=== PATIENT | male | born 1965 | race Caucasian/White ===

== ENCOUNTER 2018-08-02 15:15 | Emergency (ER) | payer SELFPAY ==
[~2018-08-02] VITALS: Ht 172.7 cm; Wt 77.1 kg
--- NOTE | 2018-08-02 15:35 | PHYS DOC ---
Past Medical History Past Medical History: No Pertinent History Past Surgical History: No Surgical History, Cholecystectomy Additional Information: 0.5 PPD Alcohol Use: None Drug Use: None Adult General Chief Complaint Chief Complaint: ABDOMINAL PAIN HPI HPI Patient is a 53 year old male brought in by ambulance with abdominal pain. Described as "grabbing" just above his bellybutton associated with nausea and vomiting he did have a bowel movement earlier in the day he has had his appendix and his gallbladder removed he is from near [facility] He does not take any daily medications. He is up here for work. Review of Systems Review of Systems Constitutional: Denies fever or chills [] Eyes: Denies change in visual acuity, redness, or eye pain [] HENT: Denies nasal congestion or sore throat [] Respiratory: Denies cough or shortness of breath [] Cardiovascular: No additional information not addressed in HPI [] Neurologic: Denies headache, focal weakness or sensory changes [] Endocrine: Denies polyuria or polydipsia [] All other systems were reviewed and found to be within normal limits, except as documented in this note. Current Medications Current Medications Current Medications Medications (Trade) Dose Ordered Sig/Yovani Start Time Stop Time Status Last Admin Dose Admin Diphenhydramine HCl (Benadryl) 25 mg 1X ONCE 08/02/18 18:30 08/02/18 18:31 DC 08/02/18 18:34 25 MG Fentanyl Citrate (Fentanyl 2ml Vial) 50 mcg 1X ONCE 08/02/18 15:45 08/02/18 15:46 DC 08/02/18 16:44 50 MCG Info (CONTRAST GIVEN -- Rx MONITORING) 1 each PRN DAILY PRN 08/02/18 15:45 08/02/18 19:14 DC Iohexol (Omnipaque 300 Mg/ml) 75 ml 1X ONCE 08/02/18 15:45 08/02/18 15:46 DC 08/02/18 17:50 75 ML Methylprednisolone Sodium Succinate (SOLU-Medrol 125MG VIAL) 125 mg 1X ONCE 08/02/18 18:30 08/02/18 18:31 DC 08/02/18 18:33 125 MG Multi-Ingredient Mouthwash/Gargle (Gi Cocktail) 20 ml 1X ONCE 08/02/18 15:45 08/02/18 15:46 DC 08/02/18 16:44 20 ML Sodium Chloride 1,000 ml @ 1,000 mls/hr 1X ONCE 08/02/18 15:45 08/02/18 16:44 DC 08/02/18 16:43 1,000 MLS/HR Allergies Allergies Allergies Coded Allergies Type Severity Reaction Last Updated Verified No Known Drug Allergies 08/02/18 No Physical Exam Physical Exam Constitutional: Well developed, well nourished, no acute distress, non-toxic appearance. [] HENT: Normocephalic, atraumatic, bilateral external ears normal, oropharynx moist, no oral exudates, nose normal. [] Eyes: PERRLA, EOMI, conjunctiva normal, no discharge. [] Neck: Normal range of motion, no tenderness, supple, no stridor. [] Cardiovascular:Heart rate regular rhythm, no murmur [] Lungs & Thorax: Bilateral breath sounds clear to auscultation [] Abdomen: Bowel sounds normal, soft, epigastric and just above the umbilicus tenderness, no masses, no pulsatile masses. [] No peritoneal signs Skin: Warm, dry, no erythema, no rash. [] Back: No tenderness, no CVA tenderness. [] Extremities: No tenderness, no cyanosis, no clubbing, ROM intact, no edema. [] Neurologic: Alert and oriented X 3, normal motor function, normal sensory function, no focal deficits noted. [] Psychologic: Affect normal, judgement normal, mood normal. [] Current Patient Data Vital Signs Vital Signs Date Time Temp Pulse Resp B/P (MAP) Pulse Ox O2 Delivery O2 Flow Rate FiO2 08/02/18 19:00 74 162/96 (118) 95 Room Air 08/02/18 18:13 19 08/02/18 15:15 98.2 98.2 Lab Values Laboratory Tests Test 08/02/18 16:40 08/02/18 17:43 White Blood Count 14.4 x10^3/uL (4.0-11.0) H Red Blood Count 4.59 x10^6/uL (4.30-5.70) Hemoglobin 16.1 g/dL (13.0-17.5) Hematocrit 45.7 % (39.0-53.0) Mean Corpuscular Volume 100 fL (79-100) Mean Corpuscular Hemoglobin 35 pg (25-35) Mean Corpuscular Hemoglobin Concent 35 g/dL (31-37) Red Cell Distribution Width 14.3 % (11.5-14.5) Platelet Count 303 x10^3/uL (140-400) Neutrophils (%) (Auto) 79 % (31-73) H Lymphocytes (%) (Auto) 13 % (24-48) L Monocytes (%) (Auto) 7 % (0-9) Eosinophils (%) (Auto) 1 % (0-3) Basophils (%) (Auto) 1 % (0-3) Neutrophils # (Auto) 11.4 x10^3uL (1.8-7.7) H Lymphocytes # (Auto) 1.9 x10^3/uL (1.0-4.8) Monocytes # (Auto) 0.9 x10^3/uL (0.0-1.1) Eosinophils # (Auto) 0.1 x10^3/uL (0.0-0.7) Basophils # (Auto) 0.1 x10^3/uL (0.0-0.2) Sodium Level 138 mmol/L (136-145) Potassium Level 4.0 mmol/L (3.5-5.1) Chloride Level 101 mmol/L (98-107) Carbon Dioxide Level 31 mmol/L (21-32) Anion Gap 6 (6-14) Blood Urea Nitrogen 5 mg/dL (8-26) L Creatinine 0.9 mg/dL (0.7-1.3) Estimated GFR (Cockcroft-Gault) 87.9 BUN/Creatinine Ratio 6 (6-20) Glucose Level 106 mg/dL (70-99) H Calcium Level 9.2 mg/dL (8.5-10.1) Total Bilirubin 0.3 mg/dL (0.2-1.0) Aspartate Amino Transferase (AST) 16 U/L (15-37) Alanine Aminotransferase (ALT) 21 U/L (16-63) Alkaline Phosphatase 123 U/L (46-116) H Troponin I Quantitative < 0.017 ng/mL (0.000-0.055) Total Protein 7.8 g/dL (6.4-8.2) Albumin 3.4 g/dL (3.4-5.0) Albumin/Globulin Ratio 0.8 (1.0-1.7) L Lipase 204 U/L (73-393) Urine Collection Type Void Urine Color Yellow Urine Clarity Clear Urine pH 7.5 Urine Specific [place] 1.010 Urine Protein Negative mg/dL (NEG-TRACE) Urine Glucose (UA) Negative mg/dL (NEG) Urine Ketones (Stick) Negative mg/dL (NEG) Urine Blood Negative (NEG) Urine Nitrite Negative (NEG) Urine Bilirubin Negative (NEG) Urine Urobilinogen Dipstick 1.0 mg/dL (0.2 mg/dL) Urine Leukocyte Esterase Negative (NEG) Urine RBC 0 /HPF (0-2) Urine WBC Occ /HPF (0-4) Urine Squamous Epithelial Cells Occ /LPF Urine Bacteria Few /HPF (0-FEW) Urine Mucus Slight /LPF Laboratory Tests 08/02/18 16:40 Laboratory Tests 08/02/18 16:40 EKG EKG [] Radiology/Procedures Radiology/Procedures []PROCEDURE: CT ABD PELV W/ IV CONTRST ONLY PQRS Compliance statement: One or more of the following individualized dose reduction techniques were utilized for this examination: 1. Automated exposure control. 2. Adjustment of the mA and/or kV according to patient size. 3. Use of iterative reconstruction technique. Indication:Abdominal pain. Evaluate for small bowel obstruction. TECHNIQUE: CT abdomen and pelvis with IV contrast with multiplanar reformats. COMPARISON: None FINDINGS: Heart is normal in size. No pericardial or pleural effusion. Motion artifact is seen in the lung bases limiting optimal evaluation. Motion artifact is also seen in the upper abdomen limiting optimal evaluation. 1.1 cm low attenuating lesion is seen in segment 5 of the liver. Otherwise, liver, spleen, pancreas, adrenals and kidneys are grossly within normal limits. No enlarged retroperitoneal or pelvic adenopathy. Small fat-containing right inguinal hernia. No free pelvic fluid or ascites. No bowel obstruction. The prostate and seminal vesicles show no large mass. Urinary bladder is within normal limits. No pneumatosis intestinalis or pneumoperitoneum. There is mild circumferential wall thickening of the distal esophagus. Mild circumferential wall thickening of the distal duodenum and jejunum. Incidental note made of retroaortic left renal vein. No suspicious bony lesion. IMPRESSION: Motion artifact is seen in the lung bases and upper abdomen limiting optimal evaluation. 1. Mild circumferential wall thickening of the distal duodenum and jejunum may be secondary to enteritis. No evidence of bowel obstruction. 2. Indeterminate right hepatic lobe lesion. Differential diagnoses includes cystic biliary hamartoma or hemangioma in absence of known primary malignancy. Either direct comparison with outside/prior imaging or nonemergent MRI of the abdomen recommended for definite confirmation. Impressions: EKG shows a normal sinus rhythm rate of 67 no obvious ischemic changes intervals are normal no STEMI Course & Med Decision Making Course & Med Decision Making Pertinent Labs and Imaging studies reviewed. (See chart for details) []Mid abdominal pain for the last several hours status post cholecystectomy white blood count was mildly elevated CT scan is currently pending. Lipase and LFTs were normal Waiting on CT and urinalysis. Care to oncoming provider Discussed imaging and lab findings with patient. Patient's pain improved. States he is feeling much better. On reexamination, abdomen is soft nontender nondistended. No peritoneal signs. Tolerating by mouth. Discussed follow-up for nonemergent outpatient MRI following CT report results. Patient states he will follow up with his primary care doctor when he returns to [place]. Discussed symptomatic treatment. We'll treat outpatient with Cipro, Flagyl and Zofran. Discussed reasons to return to the ED. Patient understands and agrees with plan. Dragon Disclaimer Dragon Disclaimer This electronic medical record was generated, in whole or in part, using a voice recognition dictation system. Departure Departure Impression: Primary Impression: Enteritis Disposition: 01 HOME, SELF-CARE Condition: IMPROVED Referrals: UNKNOWN PCP NAME (PCP) ONOFRE YOON MD, SCOTT S MD Patient Instructions: Colitis, Diarrhea Scripts Ondansetron (ZOFRAN ODT) 4 Mg Tab.rapdis 1 TAB SL Q8HRS, #10 TAB Prov: LIO GARCIA 08/02/18 Metronidazole (FLAGYL) 500 Mg Tablet 500 MG PO TID for 7 Days, #21 TAB Prov: LIO GARCIA 08/02/18 Ciprofloxacin Hcl (CIPRO) 500 Mg Tablet 1 TAB PO BID for 7 Days, #14 TAB Prov: LIO GARCIA 08/02/18 BAO HANNA MD Aug 02, 2018 15:35 LIO GARCIA Aug 02, 2018 18:15
[2018-08-02] MEDS ORDERED: CONTRAST GIVEN. MC PRN (15:45)
--- NOTE | 2018-08-02 16:26 | EKG ---
[facility] [address] [place] [address] Test Date: 2018-08-02 Test Time: 15:19:09 Pat Name: JUDITH MARSHALL Department: Room: Gender: Transcript Clerk: : 1965 Requested By: BAO HANNA Order Number: [id number] Reading MD: Josef Huffman Measurements Intervals [place] Rate: 67 P: 1 MN: 136 QRS: -30 QRSD: 94 T: 37 QT: 376 QTc: 400 Interpretive Statements SINUS RHYTHM ABNORMAL LEFT AXIS DEVIATION LEFT ANTERIOR FASCICULAR BLOCK ABNORMAL ECG RI6.01 No previous ECG available for comparison Electronically Signed On 08-03-2018 16:28:06 CDT by Josef Huffman
[2018-08-02] MEDS: IV NORMAL SALINE 1000ML BAG 1,000 ML IV ONE (16:43)
[2018-08-02] MEDS: LIDO:MAALOX 1:1 20 ML SINGLE DOSE. SWSW ONE (16:44)
[2018-08-02] MEDS: fentaNYL PF VIAL 100 MCG/2 ML VIAL IV ONE (16:44)
[2018-08-02 16:53] LABS: BASO # 0.1 x10^3/uL (0.0-0.2); BASO % 1 % (0-3); EOS # 0.1 x10^3/uL (0.0-0.7); EOS % 1 % (0-3); HEMATOCRIT 45.7 % (39.0-53.0); HEMOGLOBIN 16.1 g/dL (13.0-17.5); LYMPH # 1.9 x10^3/uL (1.0-4.8); LYMPH % 13 % (24-48); MEAN CORPUSCULAR HEMOGLOBIN 35 pg (25-35); MEAN CORPUSCULAR HGB CONC 35 g/dL (31-37); MEAN CORPUSCULAR VOLUME 100 fL (79-100); MONO # 0.9 x10^3/uL (0.0-1.1); MONO % 7 % (0-9); NEUT # 11.4 x10^3uL (1.8-7.7); NEUT % 79 % (31-73); PLATELET COUNT 303 x10^3/uL (140-400); RED BLOOD COUNT 4.59 x10^6/uL (4.30-5.70); RED CELL DISTRIBUTION WIDTH 14.3 % (11.5-14.5); WHITE BLOOD COUNT 14.4 x10^3/uL (4.0-11.0)
[2018-08-02 17:18] LABS: CALCIUM 9.2 mg/dL (8.5-10.1); CREATININE 0.9 mg/dL (0.7-1.3); GFR 87.9
[2018-08-02 17:33] LABS: ALBUMIN 3.4 g/dL (3.4-5.0); ALBUMIN/GLOBULIN RATIO 0.8 (1.0-1.7); TOTAL BILIRUBIN 0.3 mg/dL (0.2-1.0); TOTAL PROTEIN 7.8 g/dL (6.4-8.2)
[2018-08-02] MEDS: IOHEXOL 300 MG/ML 100ML VIAL. IV ONE (17:50)
[2018-08-02 17:51] LABS: BILIRUBIN,URINE NEGATIVE (NEG); CLARITY,URINE CLEAR; COLOR,URINE YELLOW; NITRITE,URINE NEGATIVE (NEG); PH,URINE 7.5; PROTEIN,URINE NEGATIVE (NEG-TRACE)
[2018-08-02 18:06] LABS: RBC,URINE 0 /HPF (0-2); SQUAMOUS EPITHELIAL CELL,UR OCC /LPF; WBC,URINE OCC /HPF (0-4)
[2018-08-02 18:07] LABS: BACTERIA,URINE FEW /HPF (0-FEW)
--- NOTE | 2018-08-02 18:08 | RAD ---
PQRS Compliance statement: One or more of the following individualized dose reduction techniques were utilized for this examination: 1. Automated exposure control. 2. Adjustment of the mA and/or kV according to patient size. 3. Use of iterative reconstruction technique. Indication:Abdominal pain. Evaluate for small bowel obstruction. TECHNIQUE: CT abdomen and pelvis with IV contrast with multiplanar reformats. COMPARISON: None FINDINGS: Heart is normal in size. No pericardial or pleural effusion. Motion artifact is seen in the lung bases limiting optimal evaluation. Motion artifact is also seen in the upper abdomen limiting optimal evaluation. 1.1 cm low attenuating lesion is seen in segment 5 of the liver. Otherwise, liver, spleen, pancreas, adrenals and kidneys are grossly within normal limits. No enlarged retroperitoneal or pelvic adenopathy. Small fat-containing right inguinal hernia. No free pelvic fluid or ascites. No bowel obstruction. The prostate and seminal vesicles show no large mass. Urinary bladder is within normal limits. No pneumatosis intestinalis or pneumoperitoneum. There is mild circumferential wall thickening of the distal esophagus. Mild circumferential wall thickening of the distal duodenum and jejunum. Incidental note made of retroaortic left renal vein. No suspicious bony lesion. IMPRESSION: Motion artifact is seen in the lung bases and upper abdomen limiting optimal evaluation. 1. Mild circumferential wall thickening of the distal duodenum and jejunum may be secondary to enteritis. No evidence of bowel obstruction. 2. Indeterminate right hepatic lobe lesion. Differential diagnoses includes cystic biliary hamartoma or hemangioma in absence of known primary malignancy. Either direct comparison with outside/prior imaging or nonemergent MRI of the abdomen recommended for definite confirmation. Electronically signed by: Prosper Carlson DO (08/02/2018 6:05 PM) [facility]
[2018-08-02] MEDS ORDERED: CIPR500T94 PO (18:14)
[2018-08-02] MEDS ORDERED: ONDA4TAB10 SL (18:14)
[2018-08-02] MEDS ORDERED: METR500T PO (18:14)
[2018-08-02] MEDS: methylPREDNISolone SOD SUCC PF 125 MG/2 ML VIAL. IV ONE (18:33)
[2018-08-02] MEDS: diphenhydrAMINE 50 MG/ML VIAL IVP ONE (18:34)
[2018-08-02 19:00] VITALS: BP 162/96
== END 2018-08-02 19:11 | disposition home or self-care (01) ==
LOC: ER 15:15
DX: K52.9 Noninfective gastroenteritis and colitis, unspecified (principal); F17.200 Nicotine dependence, unspecified, uncomplicated; Z90.49 Acquired absence of other specified parts of digestive tract
CPT/HCPCS: 36415; 74177; 80053; 81001; 83690; 84484; 85025; 93005; 96361; 96374; 96375; 99285; J1200; J2930; J3010; J7030; Q9967